=== PATIENT | male | born 1945 | race Hispanic/Latino ===

== ENCOUNTER 2019-03-15 06:19 | Day surgery (SDC) | payer MEDICARE ==
[2019-03-14 09:21] VITALS: BMI 23.4
[2019-03-15] MEDS ORDERED: Lidocaine PF 2% (5 ml) Inj (For Cardiac Arrhy) ONE (06:53)
[2019-03-15] MEDS ORDERED: Phenylephrine 10 mg/ml Inj ONE (06:53)
[2019-03-15] MEDS ORDERED: Adenosine 90 mg/30mL IV ONE (06:53)
[2019-03-15] MEDS ORDERED: Nitroglycerin 50mg in D5W 0 MG/0 ML BOTTLE IV ONE (06:54)
[2019-03-15] MEDS ORDERED: Iodixanol 320 MG/ML 200 ML BOTTLE IV ONE (06:54)
[2019-03-15] MEDS ORDERED: Iohexol 350mgl/ml 50 ML ONE (06:54)
[2019-03-15] MEDS ORDERED: Heparin 2,000 ML IV ONE (06:54)
[2019-03-15] MEDS ORDERED: Iodixanol 320 MG/ML 100 ML BOTTLE IV ONE (06:54)
[2019-03-15 07:00] LABS: BASO # 0.03 K/mm3 (0.0-2.0); BASO % 0.6 % (0.0-3.0); EOS # 0.3 (0.0-0.7); EOS % 5.1 % (1.5-5.0); HEMOGLOBIN 13.8 g/dL (14.0-18.0); LYMPH # 1.4 (1.2-3.4); LYMPH % 27.1 % (22.0-35.0); MEAN CELL VOLUME 89.6 fl (80.0-105.0); MEAN CORPUSCULAR HEMOGLOBIN 30.6 pg (25.0-35.0); MEAN CORPUSCULAR HGB CONC 34.2 g/dl (31.0-37.0); MONO # 0.5 (0.1-0.6); MONO % 9.3 % (1.0-6.0); RBC 4.51 10^6/uL (3.5-6.1); RED CELL DISTRIBUTION WIDTH 12.9 % (11.5-14.5); WHITE BLOOD COUNT 5.3 10^3/uL (4.5-11.0)
[2019-03-15 07:04] VITALS: RESP 18; TEMP 98.1
[2019-03-15 07:09] LABS: INR 1.03; PARTIAL THROMBOPLASTIN TIME 33.6 Seconds (26.9-38.3); PROTHROMBIN TIME 11.6 SECONDS (9.4-12.5)
[2019-03-15 07:11] LABS: BLOOD UREA NITROGEN 10 mg/dL (7-21); CALCIUM 9.6 mg/dL (8.4-10.5); GFR NON-AFRICAN AMERICAN > 60; HDL CHOLESTEROL 39 mg/dL (29-60)
[2019-03-15 07:22] LABS: LDL CHOLESTEROL 64 mg/dL (0-129)
[2019-03-15] MEDS ORDERED: Midazolam 2 MG/2 ML VIAL ONE ×2 (07:54→07:58)
[2019-03-15] MEDS ORDERED: Sodium Chloride 0.9% 1,000 ML IV SCH (08:45)
[2019-03-15 11:39] VITALS: BP 156/96; PULSE 71; O2SAT 98
--- NOTE | 2019-03-15 12:07 | CARDCATH ---
PROCEDURE DATE: 03/15/2019 CARDIAC CATHETERIZATION HISTORY: The patient is a 73-year-old man who presents with exertional angina progressing to symptoms after walking several steps. The patient's past medical history includes documented coronary artery disease in which he has had stents in the past. In addition, the patient suffers from hypertension and hypercholesterolemia. Because of his progressive symptoms, a cardiac catheterization was recommended. PROCEDURE: Left heart catheterization with coronary arteriography and left ventriculogram. The right femoral artery was cannulated with a 6-Spanish sheath. There were no complications. I performed moderate sedation which included the presence of an independent trained observer that assisted in monitoring the patient's level of consciousness and physiologic status. After administration of Versed and fentanyl, my intra service time was 30 minutes. Findings on catheterization revealed a left ventricle that contracted normally. Estimated ejection fraction is 60% to 65%. Supra-aortic valvular injection revealed no aortic insufficiency. The patient had a right-dominant circulation. The RCA revealed two patent stents. In the midportion of the RCA, there is a 50% to 60% stenosis noted with diffuse atherosclerosis. The left main artery revealed a 90% stenosis in its distal portion. The circumflex artery revealed a 90% stenosis in the proximal portion of the circumflex artery. The LAD revealed diffuse atherosclerosis with calcium and what appears to be a patent stent in the mid portion. AngioSeal was used to close the femoral artery site. The patient tolerated the procedure well. In summary, the procedure revealed critical left main stenosis with a 90% stenosis in the distal portion triple-vessel CAD. Normal LV function. No aortic insufficiency. The PRU was measured and found to be subtherapeutic at 245. Given these findings, the patient will need urgent coronary artery bypass surgery. I have called Dr. Odonnell at [facility]. The patient transfer today to the [facility] for Surgery. I have discussed this with the family in detail. Hai Woods MD
--- NOTE | 2019-03-15 18:21 | CARD ---
APPROVED REPORT Date of service: 03/15/2019 EKG Measurement Heart [id number] <Conclusion> Normal sinus rhythm Possible Left atrial enlargement Borderline ECG
== END 2019-03-15 11:36 | disposition short-term general hospital (02) ==
LOC: CATH 06:19 → SDSVAS 06:19 → 2RSO 09:00 → CATH 11:36
PROVIDERS: ATTEND Internal Medicine Cardiovascular Disease
DX: I25.110 Atherosclerotic heart disease of native coronary artery with unstable angina pectoris (principal); E78.00 Pure hypercholesterolemia, unspecified; I10 Essential (primary) hypertension; N40.0 Benign prostatic hyperplasia without lower urinary tract symptoms; Z95.5 Presence of coronary angioplasty implant and graft
CPT/HCPCS: 36415; 80048; 80061; 85025; 85610; 85730; 86850; 86900; 93005; 93458; 93567; 99152; 99153; C1760; C1769; C2629; J0153; J1644; J2250; J3010; J7030; Q9966; Q9967